=== PATIENT | female | born 1965 | race Caucasian/White ===

== ENCOUNTER 2018-11-30 15:51 | Inpatient (IN) | payer OTHER ==
[2018-11-30 17:36] VITALS: BMI 21.9
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
[2018-11-30] MEDS ORDERED: MAGNESIUM CITRATE 300 ML BOTTLE PO PRN (18:43)
[2018-11-30] MEDS ORDERED: MELATONIN 5 MG TABLETS PO PRN (18:43)
[2018-11-30] MEDS ORDERED: ACETAMINOPHEN 325 MG TABLET (FP) PO PRN ×2 (18:43)
[2018-11-30] MEDS ORDERED: MAG HYDROX/AL HYDROX/SIMETH 30 ML UNIT-DOSE CUP PO PRN (18:43)
[2018-11-30] MEDS ORDERED: MAGNESIUM HYDROX 2400MG/30ML ORAL SUSPENSION 30 ML CUP PO PRN (18:43)
[2018-11-30] MEDS ORDERED: METHOCARBAMOL 500 MG TABLET PO PRN (18:43)
[2018-11-30] MEDS ORDERED: DICYCLOMINE HCL 10 MG CAPSULE PO PRN (18:43)
[2018-11-30] MEDS ORDERED: BISMUTH SUBSALICYLATE 524 MG/30 ML UD PO PRN (18:43)
[2018-11-30] MEDS ORDERED: MENTHOL/PHENOL 1 EACH UD MM PRN (18:43)
[2018-11-30] MEDS: LORazepam 1 MG TABLET PO PRN (20:51)
[2018-11-30] MEDS: cloNIDine HCL 0.1 MG TABLET PO PRN (20:51)
[2018-11-30] MEDS: LORazepam 2 MG TABLET PO SCH (22:22)
[2018-11-30] MEDS: THIAMINE HCL 100 MG TABLET (FP) PO SCH (22:22)
[2018-11-30] MEDS ORDERED: METHADONE HCL 10 MG TABLET (FOR DETOX USE ONLY) PO ONE (23:00)
[2018-11-30] MEDS: FLUTICASONE PROP 0.05% 16 GM NASAL SPRAY NS SCH (23:55)
[2018-12-01] MEDS: ALBUTEROL SO4 0.083% IH SOL 2.5 MG/3 ML VIAL.NEB. NEB PRN (03:23)
[2018-12-01] MEDS: LORazepam 1 MG TABLET PO PRN (03:52)
[2018-12-01] MEDS: LORazepam 2 MG TABLET PO SCH ×3 (05:32→20:53)
[2018-12-01] MEDS ORDERED: METHADONE HCL 5 MG TABLET (FOR DETOX USE ONLY) PO ONE (10:00)
[2018-12-01] MEDS ORDERED: METHADONE HCL 10 MG TABLET (FOR DETOX USE ONLY) PO ONE (10:00)
--- NOTE | 2018-12-01 10:27 | PN ---
[facility] CIWA - CIWA Score Nausea/Vomitin-No Nausea/No Vomiting Muscle Tremors: 3 Anxiety: 2 Agitation: 2 Paroxysmal Sweats: 2 Orientation: 0-Oriented Tacttile Disturbances: 0-None Auditory Disturbances: 0-None Visual Disturbances: 0-None Headache: 0-None Present CIWA-Ar Total Score: 9 [facility] COWS - Scale Resting Pulse: 0= [place] 80 or Below Sweatin=Flushed/Facial Moisture Restless Observation: 1= Difficult to Sit Still Pupil Size: 0= Normal to Room Light Bone or Joint Aches: 1= Mild Discomfort Runny Nose/ Eye Tearin= Nasal Congestion GI Upset > 30mins: 1= Stomach Cramp Tremor Observation of Outstretched Hands: 1= Tremor [place], Not Seen Yawning Observation: 1= 1-2x During Session Anxiety or Irritability: 1=Feels Anxious/Irritable Goose Flesh Skin: 0=Smooth Skin COWS Score: 9 [facility] Progress Note (SOAP) Subjective: agitation sweats shakes body aches chills interrupted sleep Objective: 12/01/18 10:26 Vital Signs Temperature 98.3 F 12/01/18 09:34 Pulse Rate 76 12/01/18 09:34 Respiratory Rate 17 12/01/18 09:34 Blood Pressure 120/78 12/01/18 09:34 O2 Sat by Pulse Oximetry (%) pending lab results aaox3 ambulating no acute distress Assessment: 12/01/18 10:27 withdrawal sx Plan: continue detox increase fluids pending labs
[2018-12-01] MEDS: PRENATAL VITAMINS W/ FOLIC ACID TABLET (FP) PO SCH (10:50)
[2018-12-01] MEDS: LORATADINE 10 MG TABLET PO SCH (10:50)
[2018-12-01] MEDS: FLUTICASONE PROP 0.05% 16 GM NASAL SPRAY NS SCH ×2 (10:51→22:45)
[2018-12-01 10:59] LABS: BILIRUBIN,TOTAL 1.4 mg/dL (0.2-1); CREATININE 0.4 mg/dL (0.55-1.3); POTASSIUM 3.5 mmol/L (3.5-5.1); TOT PROT 5.9 g/dl (6.4-8.2)
[2018-12-01 11:09] LABS: HEMATOCRIT 38.5 % (32.4-45.2); HEMOGLOBIN 12.9 GM/dL (10.7-15.3); MCH 35.7 pg (25.7-33.7); MCHC 33.5 g/dl (32.0-36.0); MEAN CELL VOLUME 106.7 fl (80-96); MEAN PLT VOLUME 10.9 fl (7.5-11.1); RBC 3.61 M/mm3 (3.60-5.2); RDW 12.1 % (11.6-15.6); WHITE BLOOD COUNT 3.2 K/mm3 (4.0-10.0)
[2018-12-01] MEDS: ALBUTEROL SO4 8 GM HFA INHALER IH PRN ×2 (12:41→20:11)
[2018-12-01 12:57] LABS: PLATELET COUNT 34 K/MM3 (134-434)
[2018-12-01] MEDS: NICOTINE POLACRILEX 2 MG GUM BUC PRN ×2 (17:15→21:15)
[2018-12-01] MEDS: LORazepam 1 MG TABLET PO SCH (22:10)
[2018-12-01] MEDS: cloNIDine HCL 0.1 MG TABLET PO PRN (22:10)
[2018-12-01] MEDS: THIAMINE HCL 100 MG TABLET (FP) PO SCH (22:10)
[2018-12-01] MEDS: hydrOXYzine PAMOATE 25 MG CAPSULE (FP) PO PRN (22:10)
[2018-12-01] MEDS: URSODIOL 300 MG PO SCH ×2 (22:14→22:45)
[2018-12-02] MEDS: LORazepam 1 MG TABLET PO SCH ×3 (05:53→17:55)
[2018-12-02] MEDS: ALBUTEROL SO4 8 GM HFA INHALER IH PRN ×2 (05:55→17:31)
[2018-12-02] MEDS: URSODIOL 300 MG PO SCH ×4 (06:10→22:15)
[2018-12-02] MEDS ORDERED: METHADONE HCL 10 MG TABLET (FOR DETOX USE ONLY) PO ONE ×2 (10:00)
[2018-12-02] MEDS: LORATADINE 10 MG TABLET PO SCH (10:15)
[2018-12-02] MEDS: ALBUTEROL SO4 0.083% IH SOL 2.5 MG/3 ML VIAL.NEB. NEB PRN (10:18)
[2018-12-02] MEDS ORDERED: METHADONE HCL 5 MG TABLET (FOR DETOX USE ONLY) PO ONE (10:30)
[2018-12-02 10:37] LABS: BASO % 0.6 % (0-2.0); EOS % 2.3 % (0-4.5); HEMATOCRIT 38.5 % (32.4-45.2); HEMOGLOBIN 12.7 GM/dL (10.7-15.3); LYMPH % 22.2 % (8-40); MCH 35.4 pg (25.7-33.7); MEAN CELL VOLUME 107.3 fl (80-96); MEAN PLT VOLUME 11.2 fl (7.5-11.1); MONO % 12.1 % (3.8-10.2); NEUT % 62.8 % (42.8-82.8); RBC 3.58 M/mm3 (3.60-5.2); WHITE BLOOD COUNT 2.6 K/mm3 (4.0-10.0)
[2018-12-02] MEDS: FLUTICASONE PROP 0.05% 16 GM NASAL SPRAY NS SCH ×2 (10:44→22:41)
[2018-12-02] MEDS: PRENATAL VITAMINS W/ FOLIC ACID TABLET (FP) PO SCH (10:44)
[2018-12-02] MEDS: NICOTINE POLACRILEX 2 MG GUM BUC PRN ×3 (10:45→20:38)
--- NOTE | 2018-12-02 10:45 | PN ---
S CIWA - CIWA Score Nausea/Vomitin-No Nausea/No Vomiting Muscle Tremors: 2 Anxiety: 1-Mildly Anxious Agitation: 1-Slight > Activity Paroxysmal Sweats: 2 Orientation: 0-Oriented Tacttile Disturbances: 0-None Auditory Disturbances: 0-None Visual Disturbances: 0-None Headache: 0-None Present CIWA-Ar Total Score: 6 [facility] COWS - Scale Resting Pulse: 1= [place] 81-100 Sweatin= No chills or Flushing Restless Observation: 1= Difficult to Sit Still Pupil Size: 0= Normal to Room Light Bone or Joint Aches: 1= Mild Discomfort Runny Nose/ Eye Tearin= None GI Upset > 30mins: 0= None Tremor Observation of Outstretched Hands: 1= Tremor [place], Not Seen Yawning Observation: 0= None Anxiety or Irritability: 1=Feels Anxious/Irritable Goose Flesh Skin: 0=Smooth Skin COWS Score: 5 S Progress Note (SOAP) Subjective: sweats mild shakes interrupted sleep Objective: 12/02/18 10:45 Vital Signs Temperature 97.3 F L 12/02/18 09:30 Pulse Rate 85 12/02/18 09:30 Respiratory Rate 16 12/02/18 09:30 Blood Pressure 117/69 12/02/18 09:30 O2 Sat by Pulse Oximetry (%) Laboratory Tests 12/01/18 12/01/18 12/01/18 07:00 07:00 07:00 WBC 3.2 L RBC 3.61 Hgb 12.9 Hct 38.5 MCV 106.7 H MCH 35.7 H MCHC 33.5 RDW 12.1 Plt Count 34 L* MPV 10.9 Platelet Comment No clumping noted Sodium 140 Potassium 3.5 Chloride 105 Carbon Dioxide 29 Anion Gap 6 L BUN 11 Creatinine 0.4 L Est GFR (CKD-EPI)AfAm 139.77 Est GFR (CKD-EPI)NonAf 120.60 Random Glucose 86 Calcium 8.0 L Total Bilirubin 1.4 H AST 209 H ALT 88 H Alkaline Phosphatase 99 Total Protein 5.9 L Albumin 3.0 L RPR Titer Nonreactive aaox3 ambulating no acute distress Assessment: 12/02/18 11:08 mild withdrawal sx Plan: continue detox increase fluids
[2018-12-02 10:55] LABS: PLATELET COUNT 29 K/MM3 (134-434)
[2018-12-02 11:53] LABS: ANISOCYTOSIS 0; MACROCYTOSIS 0; PLATELET ESTIMATE DECREASED
[2018-12-02 12:17] LABS: ALBUMIN 3.4 g/dl (3.4-5.0); BILIRUBIN,TOTAL 2.5 mg/dL (0.2-1); CALCIUM 8.9 mg/dL (8.5-10.1); CREATININE 0.6 mg/dL (0.55-1.3); POTASSIUM 3.6 mmol/L (3.5-5.1); TOT PROT 6.6 g/dl (6.4-8.2)
[2018-12-02] MEDS: THIAMINE HCL 100 MG TABLET (FP) PO SCH (22:14)
[2018-12-02] MEDS: LORazepam 0.5 MG TABLET PO SCH (22:14)
[2018-12-02] MEDS: IBUPROFEN 400 MG TABLET (FP) PO PRN (22:16)
[2018-12-02] MEDS: hydrOXYzine PAMOATE 25 MG CAPSULE (FP) PO PRN (22:16)
[2018-12-02] MEDS ORDERED: LORazepam 0.5 MG TABLET PO PRN (23:00)
[2018-12-03] MEDS: LORazepam 0.5 MG TABLET PO SCH (05:55)
[2018-12-03] MEDS: IBUPROFEN 400 MG TABLET (FP) PO PRN (05:58)
[2018-12-03] MEDS ORDERED: METHADONE HCL 5 MG TABLET (FOR DETOX USE ONLY) PO ONE (06:00)
[2018-12-03] MEDS: URSODIOL 300 MG PO SCH (07:30)
[2018-12-03 09:26] VITALS: BP 119/80; PULSE 85; TEMP 97.9
--- NOTE | 2018-12-03 09:57 | DS ---
[facility] Detox Discharge Summary Admission Date: 11/30/18 Discharge Date: 12/03/18 - History Present History: Alcohol Dependence, Opioid Dependence, Sedative Dependence - Physical Exam Results Vital Signs: Vital Signs Temperature 97.9 F 12/03/18 09:26 Pulse Rate 85 12/03/18 09:26 Respiratory Rate 18 12/03/18 09:26 Blood Pressure 119/80 12/03/18 09:26 O2 Sat by Pulse Oximetry (%) - Treatment Hospital Course: Detox Protocol Followed, Detoxed Safely, Responded well, Discharged Condition Good, Rehab Referral Accepted - Medication Discharge Medications: Ambulatory Orders Albuterol Sulfate [Proventil HFA Inhaler -] 2 inhaler IN QID PRN 11/30/18 Fluticasone Prop 0.05% Nasal [Flonase -] 2 spray IN BID 11/30/18 Loratadine 10 mg PO DAILY 11/30/18 Trazodone HCl 150 mg PO HS PRN 11/30/18 Ursodiol [Actigall] 300 mg PO HS 11/30/18 Ursodiol [Actigall] 600 mg PO AM 11/30/18 - Diagnosis (1) Alcohol abuse Current Visit: Yes Status: Chronic (2) Opioid abuse Current Visit: Yes Status: Chronic (3) Sedative, hypnotic or anxiolytic abuse Current Visit: Yes Status: Chronic - AMA Did Patient Leave Against Medical Advice: No (pt declined aftercare; going home will attend AA meetings)
== END 2018-12-03 09:31 | disposition home or self-care (01) | DRG 773 ==
LOC: YASAS 15:51 → Y6N 19:59
PROVIDERS: ADMIT Surgery; ATTEND Surgery
PROC: HZ2ZZZZ Detoxification Services for Substance Abuse Treatment (ICD-10-PCS; principal; 2018-11-30)
DX: F10.230 Alcohol dependence with withdrawal, uncomplicated (principal); F11.23 Opioid dependence with withdrawal; F13.230 Sedative, hypnotic or anxiolytic dependence with withdrawal, uncomplicated; K74.69 Other cirrhosis of liver; K21.9 Gastro-esophageal reflux disease without esophagitis
CPT/HCPCS: 36415; 80053; 85025; 85027; 86593; 94640; J0735